=== PATIENT | male | born 1940 | race Caucasian/White ===

== ENCOUNTER 2016-10-28 10:34 | Emergency (ER) | payer BC, MEDICARE ==
--- NOTE | 2016-10-28 11:31 | ERNOTE ---
Medical Problem HPI - Narrative Date of Service: 10/28/16 - General Chief Complaint: General Assessment Time Seen by Provider: 10/28/16 10:56 Source: patient, family, old records Exam Limitations: no limitations - Immun/Allergies/Home Medications Immunizations: IMMUNIZATION HX Immunizations Up to Date Yes History of Influenza Vaccine Yes Hx Pneumococcal Vaccination Yes Allergies/Adverse Reactions: Allergies morphine Allergy (Verified 10/28/16 10:46) Home Medications: HOME MEDICATIONS Aspirin/Calcium Carbonate/Mag [Aspirin Buffered 325 mg Tab] 325 mg PO DAILY [Last Taken Unknown] Hydrochlorothiazide [Microzide] 6.25 mg PO DAILY 10/28/16 [Last Taken Unknown] Labetalol HCl [Trandate] 100 mg PO BID 10/28/16 [Last Taken Unknown] Lansoprazole [Prevacid] 15 mg PO DAILY 10/28/16 [Last Taken Unknown] Lisinopril [Prinivil] 20 mg PO DAILY 10/28/16 [Last Taken Unknown] Multivit-Min/FA/Lycopen/Lutein [Centrum Silver Men Tablet] 1 each PO DAILY 10/28 [Last Taken Unknown] Nitroglycerin [Nitrostat] 0.4 mg SL Q5MIN PRN 10/28/16 [Last Taken Unknown] Pravastatin Sodium 40 mg PO DAILY 10/28/16 [Last Taken Unknown] - History of Present History Narrative: The patient presents to the emergency department complaining of continued right sided decreased sensation. The patient has a remote history of stroke with residual right sided weakness. The patient says that his symptoms started yesterday morning. He was seen at another emergency department where he had a CAT scan performed. This was reported as negative. I have reviewed the report from the outside hospital. Labs were normal. Studies were normal. The patient says that he was given "2 Tylenol" and he says he felt better after that. Last night he started to get a little bit worse. His symptoms are primarily right facial tingling, right upper extremity tingling, right lower extremity tingling. He has not dropping things. He says he does feel like he is less coordinated in his right hand. Patient is right-hand dominant. He walks with a cane. The family brought him up here because they felt like the physician who saw him yesterday was in a hurry. They wanted to make sure that his treatment was appropriate. He has an ultrasound of his carotids scheduled for Monday. His primary care doctor is Kaitlin Canchola denies chest pain shortness of breath nausea vomiting urinary symptoms. Date (Duration): 10/27/16 - started yesterday morning Timing: other - waxing and waning Severity: mild Modifying Factors - (Improves): Present: medication Modifying Factors - (Worsens): Present: other - none Review of Systems - Narrative Narrative: Please see HPI. Subjective weakness to the right upper extremity. Decreased sensation right upper extremity, right lower extremity, right face. - Review of Systems Constitutional: Absent: fever, chills, fatigue, malaise EYE: Present: no symptoms reported ENT: Present: no symptoms reported. Absent: nose pain, sore throat, throat swelling Respiratory: Present: no symptoms reported. Absent: wheezing, stridor Cardiology: Present: no symptoms reported. Absent: chest pain, palpitations Gastrointestinal/Abdominal: Present: no symptoms reported Genitourinary: Present: no symptoms reported Musculoskeletal: Present: neck pain Skin: Present: no symptoms reported. Absent: rash, dryness Neurological: Present: See HPI, headache Endocrine: Present: no symptoms reported Hematologic/Lymphatic: Present: no symptoms reported Psych: Present: no symptoms reported All Other Systems: All systems neg except as marked - Patient's Past Medical History Patient History - Cardiac/Respiratory: Hypertension Patient History - Cancer: No Hx of Cancer Patient History - Surgical Procedures: Coronary Bypass Surgery Patient History - Other: None - Social History Living Situations: spouse Psych History: No pertinent hx Smoking Status: Former smoker Alcohol Use: none Drug Use: none - Immunizations Immunizations Up to Date: Yes Hx Pneumococcal Vaccination: Yes History of Influenza Vaccine: Yes Physical Exam - Physical Exam General Appearance: Present: wd/wn, alert, no apparent distress, active, attentive for age Eye Exam: Normal inspection: bilateral, PERRL: bilateral, EOMI: bilateral Ears, Nose, Throat: Present: normal ENT inspection Neck: Present: normal inspection, other - patient has spasm of the right paraspinal muscles in the neck. Palpation reproduces neck pain and partial headache Respiratory: Present: no respiratory distress, normal breath sounds, no accessory muscle use, chest nontender, lungs clear Cardiovascular/Chest: Present: regular rate, rhythm, no murmur, normal peripheral pulses Gastrointestinal/Abdominal: Present: normal bowel sounds, nontender, nondistended, soft, no organomegaly Rectal Exam: Present: deferred Male Genitals Exam: Present: deferred Back Exam: Present: normal inspection, normal range of motion, no CVA tenderness Extremity Exam: Present: normal inspection, non-tender, normal range of motion, no edema Neurological Exam: Present: alert, oriented, normal mood/affect, other - patient has decreased sensation to all parts of the right face. Decreased sensation to the right upper extremity all dermatomes. Decreased sensation to the right lower extremity. Much worse distally than proximally. Strength is 4 + out of 5 on the right upper and right lower. 5 out of 5 on the left upper and lower. Facial muscles all seem to be working normally. Reflexes are intact. Skin Exam: Present: normal color, warm/dry Lymphatic Exam: Present: no adenopathy ED Progress - Results and Orders Patient's Lab Results:: I have reviewed the patient's lab results. - from outside hospital - Vital Signs Patient's Vital Signs:: I have reviewed the patient's vital signs. Vital Signs: Vital Signs 10/28/16 10:36 Pulse Rate 59 L Respiratory 16 Rate Blood Pressure 149/84 O2 Sat by Pulse 99 Oximetry - Progress/Reassessment Chief Complaint: General Assessment Plan - Plan Plan: The patient's primary care doctor is Kaitlin Canchola. I've spoken to Susie who is covering this weekend for Kaitlin Canchola. I have related that the patient had a CAT scan along with labs done yesterday at [facility]. These are negative. The labs all looked okay. I described the patient's symptoms. This seems to be a pure sensory deficit. I have discussed with him motor symptoms, and if he develops weakness he needs to come immediately back to the emergency department. I have stressed the importance of taking his aspirin every day. This is the same area where he had a stroke several years ago. At this point I do not believe that an emergent MRI is appropriate. Us would not alter his treatment at this time. His treatment is primarily risk factor modification and appropriate medications. His medications seem to be optimized. Risk factors seem to be controlled. I counseled both him and his family of symptoms for which he should return immediately return. He is getting the ultrasound of his neck on Monday. I suspect that this is not going to be the result of a carotid disease. The patient and family are both comfortable with this plan of action. Departure - Departure Clinical Impression: Stroke Qualifiers: CVA mechanism: unspecified Qualified Code(s): I63.9 - Cerebral infarction, unspecified Disposition: Home self-care Condition: Stable Instructions: Carotid Artery Disease, Stroke Prevention, [id number], Stroke Prevention, Carotid Artery Disease, [id number] Additional Instructions: If you develop muscular weakness or if any new concerning symptoms develop he should return immediately to the emergency department. Make sure that you get your ultrasound done on Monday. Take an aspirin, one full size aspirin, every day. Try to minimize taking Motrin or other anti-inflammatory medicines, as these may interfere with your aspirin. Referrals: Kaitlin Canchola FNP [Primary Care Provider] -
[2016-10-28 11:47] VITALS: BP 150/72
== END 2016-10-28 11:43 | disposition home or self-care (01) ==
LOC: ER 10:34
DX: I63.9 Cerebral infarction, unspecified (principal); I10 Essential (primary) hypertension